=== PATIENT | female | born 1950 | race Caucasian/White ===

== ENCOUNTER 2024-05-28 04:50 | Day surgery (SDC) | payer OTHER ==
[2024-04-25 17:17] VITALS: BMI 24.6
[2024-05-28] MEDS: ceFAZolin SODIUM 1 GM VIAL IVPB ONE (08:39)
[2024-05-28] MEDS ORDERED: LIDOCAINE HCL/PF 2% SDV 5ML VIAL ONE (09:23)
[2024-05-28] MEDS ORDERED: PROPOFOL 20 ML ONE (09:23)
[2024-05-28] MEDS ORDERED: MIDAZOLAM HCL 2 MG/2 ML SINGLE DOSE VIAL ONE (09:24)
[2024-05-28] MEDS ORDERED: LIDOCAINE 1%/EPI 1:100000 (20 ML MULTI DOSE VIAL) ONE ×2 (10:34→10:44)
[2024-05-28] MEDS ORDERED: DEXAMETHASONE SOD PHOSPHATE 4 MG/1 ML VIAL ONE (10:39)
[2024-05-28] MEDS ORDERED: ceFAZolin SODIUM 1 GM VIAL ONE (10:39)
[2024-05-28] MEDS: LIDOCAINE 1%/EPI 1:100000 (20 ML MULTI DOSE VIAL) IJ ONE (10:48)
[2024-05-28] MEDS ORDERED: ONDANSETRON 4 MG/2 ML VIAL IVPUSH PRN (10:49)
[2024-05-28] MEDS ORDERED: PROMETHAZINE HCL 25 MG/1 ML VIAL IVPB PRN (10:49)
[2024-05-28] MEDS ORDERED: oxyCODONE HCL 5 MG TABLET PO PRN ×2 (10:49)
[2024-05-28] MEDS ORDERED: LACTATED RINGERS SOLUTION 1,000 ML IV SCH (11:00)
[2024-05-28] MEDS ORDERED: BACITRACIN ZINC 15 GM TUBE TOPICAL OINTMENT ONE (11:16)
[2024-05-28] MEDS ORDERED: ONDANSETRON 4 MG/2 ML VIAL ONE (11:19)
[2024-05-28] MEDS ORDERED: KETOROLAC TROMETHAMINE 30 MG/1 ML VIAL ONE (11:19)
[2024-05-28] MEDS: ACETAMINOPHEN INJECTION 100 ML IVPB ONE (12:18)
[2024-05-28] MEDS: ACETAMINOPHEN 1000 MG/100 ML BAG IVPB ONE (12:18)
[2024-05-28 13:27] VITALS: RESP 20
[2024-05-28 17:40] VITALS: BP 146/69; PULSE 87; TEMP 97.3
== END 2024-05-28 16:15 | disposition home or self-care (01) ==
LOC: JASU-SURG 04:50
PROVIDERS: ATTEND Urology
PROC: 0JQC0ZZ Repair Pelvic Region Subcutaneous Tissue and Fascia, Open Approach (ICD-10-PCS; principal; 2024-05-28 10:00)
DX: N81.4 Uterovaginal prolapse, unspecified (principal)
CPT/HCPCS: 88302-TC; 94760; J0131